=== PATIENT | female | born 1985 | race Caucasian/White ===

== ENCOUNTER 2022-01-25 11:08 | Outpatient (CLI) | payer OTHER, SELFPAY ==
[2022-01-25 18:08] LABS: Ferritin* 6.1 ng/mL (6.24-137.0)
[2022-01-30 09:39] LABS: Progesterone, HPLC-MS/MS 13.21 ng/mL
== END 2022-01-25 11:09 | disposition home or self-care (01) ==
PROVIDERS: Visit Provider Obstetrics & Gynecology
DX: N92.0 Excessive and frequent menstruation with regular cycle (principal)
CPT/HCPCS: 82728; 84144; 84443